=== PATIENT | male | born 1995 | race African-American/Black ===

== ENCOUNTER 2018-08-10 21:55 | Emergency (ER) | payer SELFPAY ==
[~2018-08-10] VITALS: Ht 188 cm; Wt 72.6 kg
[2018-08-10 22:13] VITALS: BP 130/68
[2018-08-11] MEDS ORDERED: KETOROLAC TROMETH 60MG/2ML VIAL IM ONE (02:00)
== END 2018-08-11 02:45 | disposition home or self-care (01) ==
LOC: ER 22:00
DX: G43.909 Migraine, unspecified, not intractable, without status migrainosus (principal)
CPT/HCPCS: 70450; 96372; 99284; J1885